=== PATIENT | male | born 1955 | race Caucasian/White ===

== ENCOUNTER 2017-03-21 05:22 | Emergency (ER) | payer OTHER ==
[~2017-03-21] VITALS: Ht 182.9 cm; Wt 117.9 kg
[~2017-03-21 05:22] MED LIST: LISI-791 PO; METF1000 PO; SIMV80TA2 PO
[2017-03-21 05:30] VITALS: TEMP 36.3; Ht 182.9 cm; Wt 117.9 kg
[2017-03-21] MEDS ORDERED: ONDANSETRON INJ 2 MG/ML 2 ML VIAL IV STA (05:37)
[2017-03-21] MEDS ORDERED: KETOROLAC TROMETHAMINE 30 MG/ML VIAL IV STA (05:37)
[2017-03-21] MEDS ORDERED: MoRPHine SULFATE 4 MG/ML 1 ML CARP\\VIAL IV STA (05:37)
[2017-03-21 06:02] LABS: BASO % 0.2 %; BASO ABS # 0.03 K/uL (0-0.2); EOS % 1.3 %; EOS ABS # 0.17 K/uL (0-0.5); HEMATOCRIT 46.1 % (42-52); HEMOGLOBIN 15.2 g/dL (14.0-18.0); IG# 0.06 K/uL (0.00-0.02); LYMPH ABS # 3.11 K/uL (1.2-3.4); MEAN CELL VOLUME 85.2 fL (80-100); MEAN CORPUSCULAR HEMOGLOBIN 28.1 pg (25-34); MEAN PLATELET VOLUME 10.8 fL (7.4-10.4); MONO % 8.6 %; MONO ABS # 1.16 K/uL (0.11-0.59); NEUT % 66.5 %; NEUT ABS # 8.98 K/uL (1.4-6.5); PLATELET COUNT 286 K/uL (130-400); RED CELL DISTRIBUTION WIDTH CV 14.1 % (11.5-14.5); RED CELL DISTRIBUTION WIDTH SD 43.3 fL (36.4-46.3); WHITE BLOOD COUNT 13.51 K/uL (4.8-10.8)
[2017-03-21 06:03] VITALS: O2SAT 95
[2017-03-21 06:21] LABS: ALBUMIN 3.6 gm/dl (3.4-5.0); ALT/SGPT 44 U/L (12-78); AST/SGOT 21 U/L (15-37); BLOOD UREA NITROGEN 27 mg/dl (7-18); CALCIUM 8.9 mg/dl (8.5-10.1); CARBON DIOXIDE 30 mmol/L (21-32); CREATININE 1.14 mg/dl (0.60-1.40); GLUCOSE 196 mg/dl (70-99); SODIUM 134 mmol/L (136-145)
[2017-03-21 06:24] LABS: ALKALINE PHOSPHATASE 110 U/L (45-117); TOTAL PROTEIN 8.2 gm/dl (6.4-8.2)
[2017-03-21] MEDS ORDERED: ATOR-22 PO (06:38)
[2017-03-21] MEDS ORDERED: METF-384 PO (06:38)
[2017-03-21] MEDS ORDERED: LEVO75TA5 PO (06:38)
[2017-03-21] MEDS ORDERED: INSDGIPEN SQ (06:38)
[2017-03-21] MEDS ORDERED: CANA1TAB3 PO (06:38)
[2017-03-21] MEDS ORDERED: LSN/10125 PO (06:39)
--- NOTE | 2017-03-21 06:45 | DIAGNOSTIC IMAGING REPORT ---
(RENAL)RETROPERITON COMP CLINICAL HISTORY: 61 years-old Male presenting with right flank pain, hx stones. TECHNIQUE: Real-time grayscale and limited color Doppler ultrasound imaging of the kidneys and bladder was performed. COMPARISON: CT from 07/29/2013. FINDINGS: Right kidney: Normal echogenicity of renal parenchyma. Right kidney measures 14.8 cm. Mild pelvocaliectasis. No convincing evidence of calculus or mass. Normal perfusion. Left kidney: Normal echogenicity of renal parenchyma. Left kidney measures 14.0 cm. No hydronephrosis. No convincing evidence of calculus or mass. Normal perfusion. Bladder: Bladder under distended. Right ureteral jet not visualized. Other: None. IMPRESSION: 1. Suspected chronic mild right pelvocaliectasis. No demonstrable evidence of calculi by ultrasound. 2. Nonvisualization of the right ureteral jet. Right ureteral obstruction cannot be excluded. 3. Noncontrast CT could be considered as clinically indicated. Electronically signed by: Jah Bryson M.D. 03/21/2017 6:44 AM Dictated Date/Time: 03/21/2017 6:42 AM
[2017-03-21] MEDS ORDERED: SODIUM CHLORIDE 0.9% 1000ML 1,000 ML IV STA (06:51)
--- NOTE | 2017-03-21 06:57 | DIAGNOSTIC IMAGING REPORT ---
KUB CLINICAL HISTORY: 61 years-old Male presenting with right flank pain, ? stone. TECHNIQUE: Single supine view of the abdomen was obtained. COMPARISON: CT from 07/29/2013 and ultrasound from 03/21/2017 FINDINGS: Nonobstructive bowel gas pattern. Moderate stool burden in the right colon. No gross pneumoperitoneum. Allowing for bowel gas and stool, questionable calcification projects over the lower pole of the right kidney. Additional calcification projects over the right hemipelvis, which does not correlate with a prior pelvic phlebolith. A phlebolith in this region is not excluded. Left pelvic phlebolith noted. Osseous structures normal. IMPRESSION: 1. Evaluation limited by bowel gas and stool. 2. Possible right renal calculi are evident 3. Possible right pelvic phlebolith versus distal right ureteral calculus. A CT of the abdomen and pelvis would better demonstrate potential calculi. Electronically signed by: Jah Bryson M.D. 03/21/2017 6:55 AM Dictated Date/Time: 03/21/2017 6:52 AM
[2017-03-21 07:19] VITALS: O2SAT 92
--- NOTE | 2017-03-21 07:31 | EMERGENCY ROOM VISIT NOTE ---
History First contact with patient: 05:34 Chief Complaint: KIDNEY STONE Stated Complaint: KIDNEY STONE History of Present Illness The patient is a 61 year old male who presents to the Emergency Room with complaints of sudden onset of severe right lower abdominal pain for the past few hours it woke him up out of sleep. Pain 8 out of 10. Nothing makes it better or worse. It radiates to his testicle. He has had kidney stones before and symptoms feel similar. He does not have a urologist. Patient denies chest pain, dyspnea, fever, chills, back pain, testicular pain, penile pain. No urinary discomfort. Review of Systems An 10 system review of systems was completed with positives and pertinent negatives listed in the HPI. Past Medical/Surgical History Medical Problems: (1) Diabetes (2) Hypertension (3) Kidney stones (4) Melanoma (5) S/P hernia repair Family History Cancer Diabetes mellitus Gallbladder disease Heart disease Hypertension Lung disease Social History Smoking Status: Never Smoker Alcohol Use: none Drug Use: none Marital Status: single Housing Status: lives with significant other Occupation Status: employed Current/Historical Medications Scheduled Atorvastatin (Lipitor), 20 MG PO DAILY Canagliflozin (Invokana), 300 MG PO DAILY Hctz/Lisinopril (Lisinopril/Hctz 10/12.5 Mg), 1 TAB PO QAM Insulin Glargine (Lantus Solostar), 50 UNITS SQ HS Levothyroxine Sodium (Levothyroxine Sodium), 75 MCG PO DAILY Metformin Hcl (Glucophage), 1,000 MG PO BID Physical Exam Vital Signs Date Time Temp Pulse Resp B/P (MAP) Pulse Ox O2 Delivery O2 Flow Rate FiO2 03/21/17 07:19 78 16 145/65 92 Room Air 03/21/17 06:05 81 03/21/17 06:03 95 Room Air 03/21/17 05:30 36.3 79 18 149/78 94 Room Air Physical Exam VITALS: Vitals are noted on the nurse's note and reviewed by myself. Vital signs stable. GENERAL: Pleasant male who appears in pain, in no acute distress, nondiaphoretic , well-developed well-nourished. SKIN: Capillary reflex less than 2 seconds. HEENT: Normocephalic. PERRLA. EOMI. Nares patent. Mucous membranes moist. Neck is supple without nuchal rigidity. HEART: Regular rate and rhythm without murmurs gallops or rubs. LUNGS: Clear to auscultation bilaterally without wheezes, rales or rhonchi. No retractions or accessory muscle use. ABDOMEN: Positive bowel sounds x 4. Normal tympanic percussion. Soft, nontender, without masses or organomegaly. Rollins sign negative. No guarding or rebound tenderness. No CVA tenderness MUSCULOSKELETAL: No gross musculoskeletal defects. NEURO: Patient was alert and oriented to person place and time. Normal sensation to light and sharp touch. No focal neurological deficits. Medical Decision & Procedures Laboratory Results 03/21/17 05:40 Red Blood Count 5.41, Mean Corpuscular Volume 85.2, Mean Corpuscular Hemoglobin 28.1, Mean Corpuscular Hemoglobin Concent 33.0, Mean Platelet Volume 10.8, Neutrophils (%) (Auto) 66.5, Lymphocytes (%) (Auto) 23.0, Monocytes (%) (Auto) 8.6, Eosinophils (%) (Auto) 1.3, Basophils (%) (Auto) 0.2, Neutrophils # (Auto) 8.98, Lymphocytes # (Auto) 3.11, Monocytes # (Auto) 1.16, Eosinophils # (Auto) 0.17, Basophils # (Auto) 0.03 03/21/17 05:40 Test 03/21/17 05:40 White Blood Count 13.51 K/uL (4.8-10.8) Red Blood Count 5.41 M/uL (4.7-6.1) Hemoglobin 15.2 g/dL (14.0-18.0) Hematocrit 46.1 % (42-52) Mean Corpuscular Volume 85.2 fL (80-100) Mean Corpuscular Hemoglobin 28.1 pg (25-34) Mean Corpuscular Hemoglobin Concent 33.0 g/dl (32-36) Platelet Count 286 K/uL (130-400) Mean Platelet Volume 10.8 fL (7.4-10.4) Neutrophils (%) (Auto) 66.5 % Lymphocytes (%) (Auto) 23.0 % Monocytes (%) (Auto) 8.6 % Eosinophils (%) (Auto) 1.3 % Basophils (%) (Auto) 0.2 % Neutrophils # (Auto) 8.98 K/uL (1.4-6.5) Lymphocytes # (Auto) 3.11 K/uL (1.2-3.4) Monocytes # (Auto) 1.16 K/uL (0.11-0.59) Eosinophils # (Auto) 0.17 K/uL (0-0.5) Basophils # (Auto) 0.03 K/uL (0-0.2) RDW Standard Deviation 43.3 fL (36.4-46.3) RDW Coefficient of Variation 14.1 % (11.5-14.5) Immature Granulocyte % (Auto) 0.4 % Immature Granulocyte # (Auto) 0.06 K/uL (0.00-0.02) Urine Color YELLOW Urine Appearance CLEAR (CLEAR) Urine pH 6.0 (4.5-7.5) Urine Specific [place] 1.038 (1.000-1.030) Urine Protein NEG (NEG) Urine Glucose (UA) 3+ (NEG) Urine Ketones NEG (NEG) Urine Occult Blood 2+ (NEG) Urine Nitrite NEG (NEG) Urine Bilirubin NEG (NEG) Urine Urobilinogen NEG (NEG) Urine Leukocyte Esterase NEG (NEG) Urine WBC (Auto) 1-5 /hpf (0-5) Urine RBC (Auto) >30 /hpf (0-4) Urine Hyaline Casts (Auto) 1-5 /lpf (0-5) Urine Epithelial Cells (Auto) 0-5 /lpf (0-5) Urine Bacteria (Auto) NEG (NEG) Anion Gap 4.0 mmol/L (3-11) Est Creatinine Clear Calc Drug Dose 92.5 ml/min Estimated GFR () 81.1 Estimated GFR (Non- 70.0 BUN/Creatinine Ratio 23.9 (10-20) Calcium Level 8.9 mg/dl (8.5-10.1) Total Bilirubin 0.3 mg/dl (0.2-1) Direct Bilirubin < 0.1 mg/dl (0-0.2) Aspartate Amino Transf (AST/SGOT) 21 U/L (15-37) Alanine Aminotransferase (ALT/SGPT) 44 U/L (12-78) Alkaline Phosphatase 110 U/L (45-117) Total Protein 8.2 gm/dl (6.4-8.2) Albumin 3.6 gm/dl (3.4-5.0) Medications Administered Medications (Trade) Dose Ordered Sig/[place] Route Start Time Stop Time Status Last Admin Dose Admin Ketorolac Tromethamine (Toradol Inj) 30 mg NOW STAT IV 03/21/17 05:37 03/21/17 05:38 DC 03/21/17 05:51 30 MG Morphine Sulfate (MoRPHine SULFATE INJ) 4 mg NOW STAT IV 03/21/17 05:37 03/21/17 05:39 DC 03/21/17 05:51 4 MG Ondansetron HCl (Zofran Inj) 4 mg NOW STAT IV 03/21/17 05:37 03/21/17 05:39 DC 03/21/17 05:50 4 MG ED Course Prior records/ancillary studies reviewed. Triage Nursing notes reviewed. Additional history obtained from the family. The patient's history was concerning for right lower abdominal pain. Differential diagnosis: Etiologies such as renal colic, appendicitis, diverticulitis, mesenteric ischemia, aortic pathology, infections, inflammatory bowel disease, PUD, biliary pathology, UTI, as well as others were entertained. Physical examination findings: As above. ER treatment provided: Morphine, Zofran, Toradol On reassessment the patient felt better. Diagnostic interpretation by me: The labs revealed hyperglycemia without DKA. Urinalysis revealed hematuria. There was no sign of UTI. Imaging studies: US TECHNIQUE: Real-time grayscale and limited color Doppler ultrasound imaging of the kidneys and bladder was performed. COMPARISON: CT from 07/29/2013. FINDINGS: Right kidney: Normal echogenicity of renal parenchyma. Right kidney measures 14.8 cm. Mild pelvocaliectasis. No convincing evidence of calculus or mass. Normal perfusion. Left kidney: Normal echogenicity of renal parenchyma. Left kidney measures 14.0 cm. No hydronephrosis. No convincing evidence of calculus or mass. Normal perfusion. Bladder: Bladder under distended. Right ureteral jet not visualized. Other: None. IMPRESSION: 1. Suspected chronic mild right pelvocaliectasis. No demonstrable evidence of calculi by ultrasound. 2. Nonvisualization of the right ureteral jet. Right ureteral obstruction cannot be excluded. 3. Noncontrast CT could be considered as clinically indicated. CLINICAL HISTORY: 61 years-old Male presenting with right flank pain, ? stone. TECHNIQUE: Single supine view of the abdomen was obtained. COMPARISON: CT from 07/29/2013 and ultrasound from 03/21/2017 FINDINGS: Nonobstructive bowel gas pattern. Moderate stool burden in the right colon. No gross pneumoperitoneum. Allowing for bowel gas and stool, questionable calcification projects over the lower pole of the right kidney. Additional calcification projects over the right hemipelvis, which does not correlate with a prior pelvic phlebolith. A phlebolith in this region is not excluded. Left pelvic phlebolith noted. Osseous structures normal. IMPRESSION: 1. Evaluation limited by bowel gas and stool. 2. Possible right renal calculi are evident 3. Possible right pelvic phlebolith versus distal right ureteral calculus. A CT of the abdomen and pelvis would better demonstrate potential calculi. Electronically signed by: Jah Bryson M.D. It appears that the patient has isolated renal colic from a right sided stone. Patient's pain was under control. He was advised to take medications as directed, strain his urine and follow-up urology in a few days or here in the ER sooner for severe pain, fevers, vomiting, worsening signs or symptoms or as needed. He was advised to monitor his blood sugar. By the evaluation outlined above emergent etiologies such as appendicitis, diverticulitis, mesenteric ischemia, aortic pathology, infections, inflammatory bowel disease, PUD, biliary pathology, UTI, as well as others were deemed relatively unlikely. The pt informed about the findings as listed above. All questions were answered and pleased with the treatment. Return instructions were outlined and the patient was discharged in stable condition. Outpatient prescription management: Oxy IR 5mg 1-2 po Q4 hrs prn Zofran Referral: The pt was referred to [facility] for follow up care regarding their stone. or The patient was referred back to their primary care physician for follow-up in 2 to 3 days for a recheck of the current condition. Case reviewed with my attending Medical Decision As above [place] Drug Monitoring Program Search Results: patient reviewed within database, no issues identified Medication Reconcilliation Current Medication List: was personally reviewed by me Blood Pressure Screening Patient's blood pressure: Normal blood pressure Impression Primary Impression: Renal colic on right side Additional Impression: Diabetes mellitus with hyperglycemia Departure Information Dispostion Home / Self-Care Condition GOOD Referrals Onur Lfoton Jr,D.O. (PCP) Patient Instructions My [facility] Additional Instructions DO NOT drive, drink alcohol, operate machinery, or perform dangerous activities today. You were given medications in the ER that can affect your ability to safely function or operate a vehicle. Oxycodone Immediate Release (OxyIR) 5mg: Take 1-2 pills every four hours for pain. Avoid alcohol, operating machinery or dangerous equipment, working on ladders or roofs, DRIVING, or situations where being under the influence may be dangerous. It is recommended to use an [id number] stool softener such as Colace, 100mg twice daily while taking this medication to avoid constipation. Zofran 4 mg: Take one every six hours as needed for nausea. Avoid alcohol, operating machinery or dangerous equipment, working on ladders or roofs, DRIVING , or situations where being under the influence may be dangerous. Ibuprofen(Motrin, Advil) may be used for fever or pain. Use 600mg every six hours as needed. Take with food. Avoid using more than 2400mg in a 24 hour period. Do not use 2400mg per day for more than three consecutive days without physician direction. Prolonged inappropriate use can lead to stomach upset or ulcers. This medication can be taken if you need to drive, work, or perform activities which may be dangerous when taking narcotic pain medication. (AND/OR) Acetaminophen(Tylenol) may be used for fever or pain. Use 1000mg every six hours as needed. Avoid using more than 3000mg in a 24 hour period. This medication can be taken if you need to drive, work, or perform activities which may be dangerous when taking narcotic pain medication. Strain your urine and collect all the stones or debris for the urologists. Rest and avoid strenuous activity until your stone passes and symptoms resolve. Drink plenty of fluids. Continue current medications. Return to the ER for worsening abdominal or back pain, vomiting, fevers, passing out, or as needed. Follow up with urology in 2-3 days, call for an appointment. Problem Qualifiers
[2017-03-21] MEDS ORDERED: ONDA4TAB10 SL (07:33)
[2017-03-21] MEDS ORDERED: OXYC1TAB3 PO (07:33)
[2017-03-21] MEDS ORDERED: ONDANSETRON HOME PACK 4MG OD TAB PO ONE (07:45)
[2017-03-21] MEDS ORDERED: OXYCODONE IR HOME PACK PO ONE (07:45)
[2017-03-21 08:21] VITALS: BP 135/71; PULSE 76
== END 2017-03-21 08:21 | disposition home or self-care (01) ==
LOC: C.EDB 05:24
DX: N22 Calculus of urinary tract in diseases classified elsewhere (principal); E11.65 Type 2 diabetes mellitus with hyperglycemia; R10.31 Right lower quadrant pain; I10 Essential (primary) hypertension

== ENCOUNTER → 2017-09-21 | Outpatient (CLI) | payer OTHER ==
[~2017-09-21] MED LIST changes: +ATOR-22 PO; +CANA1TAB3 PO; +INSDGIPEN SQ; +LEVO75TA5 PO; -LISI-791 PO; +LSN/10125 PO; +METF-384 PO; -METF1000 PO; +ONDA4TAB10 SL; +OXYC-737 PO; -SIMV80TA2 PO
[2017-09-21 15:46] LABS: BASO % 0.2 %; BASO ABS # 0.02 K/uL (0-0.2); EOS % 2.8 %; EOS ABS # 0.25 K/uL (0-0.5); HEMATOCRIT 43.3 % (42-52); IG# 0.02 K/uL (0.00-0.02); LYMPH % 37.5 %; MEAN CELL VOLUME 84.4 fL (80-100); MEAN CORPUSCULAR HEMOGLOBIN 27.3 pg (25-34); MEAN CORPUSCULAR HGB CONC 32.3 g/dl (32-36); MEAN PLATELET VOLUME 11.2 fL (7.4-10.4); MONO % 10.5 %; MONO ABS # 0.92 K/uL (0.11-0.59); NEUT % 48.8 %; NEUT ABS # 4.28 K/uL (1.4-6.5); PLATELET COUNT 288 K/uL (130-400); RED CELL DISTRIBUTION WIDTH CV 13.8 % (11.5-14.5); RED CELL DISTRIBUTION WIDTH SD 42.8 fL (36.4-46.3); WHITE BLOOD COUNT 8.79 K/uL (4.8-10.8)
[2017-09-21 16:27] LABS: ALT/SGPT 55 U/L (12-78); AST/SGOT 24 U/L (15-37); BLOOD UREA NITROGEN 15 mg/dl (7-18); CALCIUM 8.5 mg/dl (8.5-10.1); CARBON DIOXIDE 29 mmol/L (21-32); CHOLESTEROL 161 mg/dl (0-200); GLUCOSE 148 mg/dl (70-99); LDL CHOLESTEROL CALCULATED 76 mg/dl; POTASSIUM 3.6 mmol/L (3.5-5.1); SODIUM 138 mmol/L (136-145)
== END | disposition home or self-care (01) ==
LOC: C.LAB 14:30
DX: E11.9 Type 2 diabetes mellitus without complications (principal); I10 Essential (primary) hypertension; E78.5 Hyperlipidemia, unspecified